=== PATIENT | female | born 1945 | race Caucasian/White ===

== ENCOUNTER → 2016-09-07 | Outpatient (CLI) | payer MEDICARE, BC ==
[~2016-09-07] MED LIST: CALCTAB68 PO; ESTR1MIS PV; FLAXOIL PO; KEFL500C17 PO; METR1GEL4 EX; PERC5TAB12 PO; REST0.05 OU; VITA100066 PO
--- NOTE | 2016-09-07 10:32 | REPMRS ---
Patient History The patient states she had a clinical breast exam in 11/2015. Patient is postmenopausal. No known family history of cancer. Taking unspecified hormones for 7 years. Digital Woman Screen Mammo: September 07, 2016 - Exam #: [id number] Bilateral CC and MLO view(s) were taken. Technologist: Gissel Villalba, Technologist Prior study comparison: July 17, 2015, digital woman screen mammo performed at [facility]. July 08, 2014, digital woman screen mammo performed at [facility]. January 11, 2013, digital woman screen mammo performed at [facility]. FINDINGS: There are scattered fibroglandular densities. There has been no change in the appearance of the mammogram from the prior studies. There is a mild amount of scattered fibroglandular density which is fairly symmetric. There is no interval development of dominant mass, architectural distortion, or clustered microcalcification suggestive of malignancy. ASSESSMENT: BI-RADS/ACR category 1 mammogram. Negative. Recommendation Routine screening mammogram in 1 year (for women over age 40). This mammogram was interpreted with the aid of an FDA-approved computer-aided dectection system. Electronically Signed By: Bolivar John MD 09/07/16 6095
--- NOTE | 2016-09-09 09:56 | DEXA ---
AP SPINE L1 - L4 0.876 -2.6 -0.9 LT FEMUR TOTAL 0.797 -1.7 -0.2 RT FEMUR TOTAL 0.831 -1.4 0.0 TOTAL BODY TOTAL OTHER DUAL FEMUR FRAX* ASSESSMENT Risk factors: Secondary menopause, history of adult fracture. 10 year probability of fracture Major osteoporotic fracture % Hip fracture % COMMENTS: There is low bone density of the hips. There is osteoporosis of the spine. The density of the spine is decreased 3.9% since the initial exam on 10/1998. The spine density is decreased 0.3% since the most recent exam on 06/2014. The density of the left hip has increased 4.2% since the initial exam on 10/1998. The density of the left hip has decreased 0.4% since the most recent exam on 2014. The density of the right hip has increased 6.7% since the initial exam on 1998. The density of the right hip has decreased 1.7% since the most recent exam on 2014. FOLLOW-UP: Recommendation for the next bone density exam: 2 years. TIANNA
== END ==
LOC: M WHC 09:32
PROVIDERS: ATTEND Obstetrics & Gynecology
DX: Z12.31 Encounter for screening mammogram for malignant neoplasm of breast (principal); M85.88 Other specified disorders of bone density and structure, other site
CPT/HCPCS: 77080; G0202

== ENCOUNTER 2016-11-10 13:14 | Outpatient (CLI) | payer MEDICARE, BC, OTHER ==
[~2016-11-10] VITALS: Ht 157.5 cm; Wt 58.5 kg
[2016-11-10] MEDS ORDERED: NS 1,000 ML IV SCH (13:30)
[2016-11-10] MEDS ORDERED: PROPOFOL 200 MG/20 ML VIAL As Ordered ONE (14:00)
[2016-11-10] MEDS ORDERED: LIDOCAINE 2% INJ 100 MG/5 ML SDV (FOR ANES.) As Ordered ONE (14:00)
[2016-11-10] MEDS ORDERED: GLYCOPYRROLATE INJ 0.2 MG/ML 2 ML VIAL As Ordered ONE (14:05)
--- NOTE | 2016-11-10 14:21 | ROOR ---
Patient Name: Elena Sol Procedure Date: 11/10/2016 1:52 PM Date of : 1945 Age: 70 Room: [facility] Gender: Female Note Status: Finalized Procedure: Total Colonoscopy to Cecum + Cold Snare Polypectomy Indications: Screening for colorectal malignant neoplasm, Last colonoscopy: 2004 Providers: Dominick Holly MD Referring MD: Luis Linares MD Requesting Provider: Medicines: Monitored Anesthesia Care Complications: No immediate complications. Procedure: Pre-Anesthesia Assessment: - The heart rate, respiratory rate, oxygen saturations, blood pressure, adequacy of pulmonary ventilation, and response to care were monitored throughout the procedure. The Colonoscope was introduced through the anus and advanced to the cecum, identified by appendiceal orifice and ileocecal valve. The colonoscopy was performed without difficulty. The patient tolerated the procedure well. The quality of the bowel preparation was excellent. Findings: The perianal and digital rectal examinations were normal. Non-bleeding internal hemorrhoids were found during retroflexion. The hemorrhoids were small and Grade I (internal hemorrhoids that do not prolapse). A small polyp was found in the mid ascending colon. The polyp was sessile. The polyp was removed with a cold snare. Resection and retrieval were complete. The exam was otherwise without abnormality on direct and retroflexion views. Impression: - Non-bleeding internal hemorrhoids. - One small polyp in the mid ascending colon, removed with a cold snare. Resected and retrieved. - The examination was otherwise normal on direct and retroflexion views. - The exam was otherwise normal to the cecum. Recommendation: - Patient has a contact number available for emergencies. The signs and symptoms of potential delayed complications were discussed with the patient. Return to normal activities tomorrow. Written discharge instructions were provided to the patient. - High fiber diet. - Discharge patient to home. - Continue present medications. - Await pathology results. - Telephone GI clinic for pathology results in 1 week. - Repeat colonoscopy for surveillance based on pathology results. - Return to referring physician. - The findings and recommendations were discussed with the patient's family. Dominick Holly MD Dominick Holly MD 11/10/2016 2:21:04 PM This report has been signed electronically. Number of Addenda: 0 Note Initiated On: 11/10/2016 1:52 PM Estimated Blood Loss: Estimated blood loss: none.
[2016-11-10 14:59] VITALS: BP 120/64
== END 2016-11-10 15:04 | disposition home or self-care (01) ==
LOC: M OPP 13:14
PROVIDERS: ATTEND Internal Medicine Gastroenterology
DX: Z12.11 Encounter for screening for malignant neoplasm of colon (principal); D12.2 Benign neoplasm of ascending colon; K64.0 First degree hemorrhoids; R01.1 Cardiac murmur, unspecified; L71.9 Rosacea, unspecified; R51 Headache; Z79.899 Other long term (current) drug therapy

== ENCOUNTER → 2016-12-09 | Outpatient (REF) | payer MEDICARE, OTHER ==
[2016-12-09 11:55] LABS: BASO % 0.5 % (0.0-1.0); EOS # 0.1 10^3/uL (0.0-0.50); EOS % 1.6 % (0.0-3.0); IMMATURE GRANULOCYTE % 0.3 % (0-0); LYMPH # 1.1 10^3/uL (1.5-4.5); LYMPH % 30.5 % (24.0-44.0); MEAN CORPUSCULAR HEMOGLOBIN 28.4 pg (27.0-33.0); MEAN CORPUSCULAR HGB CONC 32.2 g/dl (32.0-36.5); MEAN CORPUSCULAR VOLUME 88.4 fl (80.0-96.0); MONO # 0.4 10^3/uL (0.0-0.8); MONO % 9.6 % (0.0-5.0); NEUTROPHILS # 2.2 10^3/uL (1.8-7.7); NEUTROPHILS % 57.5 % (36.0-66.0); PLATELET COUNT, AUTOMATED 234 10^3/uL (150-450); RED CELL DISTRIBUTION WIDTH 13.4 % (11.5-14.5); WHITE BLOOD COUNT 3.7 10^3/uL (4.0-10.0)
[2016-12-09 12:08] LABS: ALBUMIN/GLOBULIN RATIO 1.18 (1.00-1.93); ALKALINE PHOSPHATASE 66 U/L (45-117); ALT/SGPT 38 U/L (12-78); ANION GAP 4 MEQ/L (8-16); AST/SGOT 19 U/L (15-37); BILIRUBIN,TOTAL 0.7 MG/DL (0.2-1.0); BLOOD UREA NITROGEN 15 MG/DL (7-18); CALCIUM LEVEL 9.2 MG/DL (8.8-10.2); CARBON DIOXIDE LEVEL 33 MEQ/L (21-32); CHLORIDE LEVEL 104 MEQ/L (98-107); CHOLESTEROL LEVEL 244 MG/DL (<200); GLOMERULAR FILTRATION RATE > 60.0 (>39); GLUCOSE, FASTING 82 MG/DL (83-110); POTASSIUM SERUM 4.3 MEQ/L (3.5-5.1); SODIUM LEVEL 141 MEQ/L (136-145); TOTAL PROTEIN 7.4 GM/DL (6.4-8.2); TRIGLYCERIDES LEVEL 135 MG/DL (<150)
== END ==
LOC: M LABDRAW1 10:01
PROVIDERS: ATTEND Family Medicine
DX: E55.9 Vitamin D deficiency, unspecified (principal); E78.5 Hyperlipidemia, unspecified

== ENCOUNTER → 2017-10-26 | Outpatient (CLI) | payer MEDICARE, BC | LOC: M WHC 09:03 | DX: Z12.31 Encounter for screening mammogram for malignant neoplasm of breast (principal) | CPT/HCPCS: 77067 ==

== ENCOUNTER → 2017-11-30 | Outpatient (REF) | payer MEDICARE ==
[2017-11-30 12:37] LABS: BASO % 0.6 % (0.0-1.0); EOS # 0.1 10^3/uL (0.0-0.50); EOS % 1.4 % (0.0-3.0); HEMATOCRIT 39.7 % (36.0-47.0); HEMOGLOBIN 12.8 g/dl (12.0-15.5); LYMPH # 1.1 10^3/uL (1.5-4.5); LYMPH % 30.1 % (24.0-44.0); MEAN CORPUSCULAR HEMOGLOBIN 28.3 pg (27.0-33.0); MEAN CORPUSCULAR HGB CONC 32.2 g/dl (32.0-36.5); MEAN CORPUSCULAR VOLUME 87.8 fl (80.0-96.0); MONO # 0.4 10^3/uL (0.0-0.8); NEUTROPHILS % 57.9 % (36.0-66.0); PLATELET COUNT, AUTOMATED 236 10^3/uL (150-450); RED BLOOD COUNT 4.52 10^6/uL (4.00-5.40); RED CELL DISTRIBUTION WIDTH 13.6 % (11.5-14.5); WHITE BLOOD COUNT 3.5 10^3/uL (4.0-10.0)
[2017-11-30 12:53] LABS: ALBUMIN 3.9 GM/DL (3.2-5.2); ALBUMIN/GLOBULIN RATIO 1.15 (1.00-1.93); ALKALINE PHOSPHATASE 69 U/L (45-117); ALT/SGPT 26 U/L (12-78); ANION GAP 4 MEQ/L (8-16); AST/SGOT 20 U/L (7-37); BILIRUBIN,TOTAL 0.6 MG/DL (0.2-1.0); BLOOD UREA NITROGEN 16 MG/DL (7-18); CALCIUM LEVEL 8.9 MG/DL (8.8-10.2); CARBON DIOXIDE LEVEL 30 MEQ/L (21-32); CHLORIDE LEVEL 107 MEQ/L (98-107); CHOLESTEROL LEVEL 253 MG/DL (<200); CHOLESTEROL RISK RATIO 4.685 (<5); CREATININE FOR GFR 0.83 MG/DL (0.55-1.30); GLOMERULAR FILTRATION RATE > 60.0 (>39); GLUCOSE, FASTING 77 MG/DL (70-100); HDL CHOLESTEROL 54 MG/DL (>40); LDL CHOLESTEROL 179 MG/DL (<100); NON-HDL-C 199 MG/DL; POTASSIUM SERUM 4.8 MEQ/L (3.5-5.1); SODIUM LEVEL 141 MEQ/L (136-145); TOTAL PROTEIN 7.3 GM/DL (6.4-8.2); TRIGLYCERIDES LEVEL 98 MG/DL (<150)
[2017-11-30 13:07] LABS: TOTAL 25(OH) VITAMIN D 28.6 NG/ML (30.0-100.0)
== END ==
LOC: M LABDRAW1 11:51
DX: Z00.00 Encounter for general adult medical examination without abnormal findings (principal); E55.9 Vitamin D deficiency, unspecified
CPT/HCPCS: 80053

== ENCOUNTER → 2018-11-29 | Outpatient (CLI) | payer MEDICARE, BC ==
--- NOTE | 2018-11-29 10:29 | REPMRS ---
Patient History The patient states she had a clinical breast exam in 10/2018. Patient is postmenopausal. No known family history of cancer. Taking unspecified hormones for 9 years. 3D TOMOSYNTHESIS WAS PERFORMED. [facility] lifetime risk for breast cancer is 3.3%. Digital Woman Screen Mammo: November 29, 2018 - Exam #: [id number] Bilateral CC and MLO view(s) were taken. Technologist: Gissel Villalba, Technologist Prior study comparison: October 26, 2017, bilateral digital woman screen mammo performed at [facility]. September 07, 2016, digital woman screen mammo performed at [facility]. FINDINGS: The breast tissue is heterogeneously dense. This may lower the sensitivity of mammography. There has been no change in the appearance of the mammogram from the prior studies. There is a moderate amount of residual fibroglandular tissue which is fairly symmetric. There is no interval development of dominant mass, areas of architectural distortion, or clustered microcalcification typical of malignancy. Assessment: BI-RADS/ACR category 1 mammogram. Negative Mammogram. Recommendation Routine screening mammogram in 1 year (for women over age 40). This mammogram was interpreted with the aid of an FDA-approved computer-aided dectection system. Electronically Signed By: Joon Marin MD 11/29/18 0954
--- NOTE | 2018-11-30 10:18 | DEXA ---
AP SPINE L1 - L4 0.806 -3.1 -1.4 LT FEMUR TOTAL 0.776 -1.8 -0.3 LT NECK 0.731 -2.2 -0.4 RT FEMUR TOTAL 0.806 -1.6 0.0 RT NECK 0.755 -2.0 -0.3 TOTAL BODY TOTAL OTHER COMMENTS: There is low bone density of the hips. There is osteoporosis of the spine. The decreased density of the spine does represent a significant change. The decreased density of the left hip does represent significant change. The decreased density of the right hip does represent a significant change. The density of the spine has decreased 11.6% since the initial exam on 11/18/1998. The spine density has decreased 8.0% since the most recent exam on 09/07/2016. The density of the left hip has increased 1.4% since the initial exam on 11/18/1998. The density of the left hip has decreased 2.6% since the most recent exam on 09/07/2016. The density of the right hip has increased 3.5% since the initial exam on 11/18/1998. The density of the right hip has decreased 3.0% since the most recent exam on 09/07/2016. FOLLOW-UP: Recommendation for the next bone density exam: 2 years. TIANNA
== END ==
LOC: M WHC 08:57
DX: Z12.31 Encounter for screening mammogram for malignant neoplasm of breast (principal); R29.890 Loss of height; Z78.0 Asymptomatic menopausal state; Z92.89 Personal history of other medical treatment

== ENCOUNTER → 2018-12-01 | Outpatient (REF) | payer MEDICARE, OTHER ==
[2018-12-01 15:36] LABS: BASO % 0.8 % (0.0-1.0); EOS # 0.1 10^3/uL (0.0-0.5); EOS % 2.2 % (0.0-3.0); HEMATOCRIT 42.2 % (36.0-47.0); HEMOGLOBIN 13.3 g/dl (12.0-15.5); LYMPH # 1.1 10^3/uL (1.5-5.0); LYMPH % 29.4 % (24.0-44.0); MEAN CORPUSCULAR HEMOGLOBIN 28.1 pg (27.0-33.0); MEAN CORPUSCULAR HGB CONC 31.5 g/dl (32.0-36.5); MEAN CORPUSCULAR VOLUME 89.2 fl (80.0-96.0); MONO # 0.3 10^3/uL (0.0-0.8); MONO % 9.1 % (0.0-5.0); NEUTROPHILS # 2.1 10^3/uL (1.5-8.5); NEUTROPHILS % 58.2 % (36.0-66.0); PLATELET COUNT, AUTOMATED 238 10^3/uL (150-450); RED BLOOD COUNT 4.73 10^6/uL (4.00-5.40); WHITE BLOOD COUNT 3.6 10^3/uL (4.0-10.0)
[2018-12-01 15:48] LABS: ALBUMIN 4.2 GM/DL (3.2-5.2); ALT/SGPT 36 U/L (12-78); BILIRUBIN,TOTAL 0.7 MG/DL (0.2-1.0); BLOOD UREA NITROGEN 14 MG/DL (7-18); CALCIUM LEVEL 9.3 MG/DL (8.8-10.2); CARBON DIOXIDE LEVEL 30 MEQ/L (21-32); CHLORIDE LEVEL 106 MEQ/L (98-107); CHOLESTEROL LEVEL 181 MG/DL (<200); CHOLESTEROL RISK RATIO 3.067 (<5); CREATININE FOR GFR 0.86 MG/DL (0.55-1.30); GLOMERULAR FILTRATION RATE > 60.0 (>39); GLUCOSE, FASTING 79 MG/DL (70-100); HDL CHOLESTEROL 59 MG/DL (>40); LDL CHOLESTEROL 101 MG/DL (<100); NON-HDL-C 122 MG/DL; POTASSIUM SERUM 4.3 MEQ/L (3.5-5.1); SODIUM LEVEL 141 MEQ/L (136-145); TOTAL PROTEIN 7.2 GM/DL (6.4-8.2); TRIGLYCERIDES LEVEL 103 MG/DL (<150)
[2018-12-01 15:49] LABS: TOTAL 25(OH) VITAMIN D 23.6 NG/ML (30.0-100.0)
== END ==
LOC: M LABDRAW1 11:20
PROVIDERS: ATTEND Family Medicine
DX: E55.9 Vitamin D deficiency, unspecified (principal); E78.5 Hyperlipidemia, unspecified; Z79.899 Other long term (current) drug therapy

== ENCOUNTER → 2019-12-04 | Outpatient (CLI) | payer MEDICARE, OTHER ==
[2019-12-04 14:11] LABS: HEMATOCRIT 43.2 % (36.0-47.0); HEMOGLOBIN 13.2 g/dl (12.0-15.5); MEAN CORPUSCULAR HEMOGLOBIN 27.6 pg (27.0-33.0); MEAN CORPUSCULAR HGB CONC 30.6 g/dl (32.0-36.5); MEAN CORPUSCULAR VOLUME 90.4 fl (80.0-96.0); PLATELET COUNT, AUTOMATED 240 10^3/uL (150-450); RED BLOOD COUNT 4.78 10^6/uL (4.00-5.40); WHITE BLOOD COUNT 3.9 10^3/uL (4.0-10.0)
[2019-12-04 14:34] LABS: ALBUMIN 4.3 GM/DL (3.2-5.2); ALT/SGPT 27 U/L (12-78); BILIRUBIN,TOTAL 0.8 MG/DL (0.2-1.0); BLOOD UREA NITROGEN 15 MG/DL (7-18); CARBON DIOXIDE LEVEL 31 MEQ/L (21-32); CHLORIDE LEVEL 106 MEQ/L (98-107); CHOLESTEROL LEVEL 166 MG/DL (<200); CHOLESTEROL RISK RATIO 2.634 (<5); CREATININE FOR GFR 0.93 MG/DL (0.55-1.30); GLOMERULAR FILTRATION RATE > 60.0 (>39); GLUCOSE, FASTING 79 MG/DL (70-100); HDL CHOLESTEROL 63 MG/DL (>40); LDL CHOLESTEROL 84 MG/DL (<100); NON-HDL-C 103 MG/DL; POTASSIUM SERUM 4.7 MEQ/L (3.5-5.1); SODIUM LEVEL 142 MEQ/L (136-145); TOTAL 25(OH) VITAMIN D 38.4 NG/ML (30.0-100.0); TOTAL PROTEIN 7.8 GM/DL (6.4-8.2); TRIGLYCERIDES LEVEL 96 MG/DL (<150)
== END ==
LOC: M PLALAB 09:12
PROVIDERS: ATTEND Family Medicine
DX: Z00.00 Encounter for general adult medical examination without abnormal findings (principal); E55.9 Vitamin D deficiency, unspecified; Z79.899 Other long term (current) drug therapy

== ENCOUNTER → 2019-12-07 | Outpatient (CLI) | payer MEDICARE, BC ==
--- NOTE | 2019-12-07 09:54 | REPMRS ---
Patient History The patient states she had a clinical breast exam in 2019. No known family history of cancer. Taking unspecified hormones for 9 years. Digital Woman Screen Mammo: December 07, 2019 - Exam #: [id number] Bilateral CC and MLO view(s) were taken. Technologist: Amie Narayanan, Technologist Prior study comparison: November 29, 2018, bilateral digital woman screen mammo performed at [facility]. October 26, 2017, bilateral digital woman screen mammo performed at [facility]. September 07, 2016, digital woman screen mammo performed at [facility]. FINDINGS: There are scattered fibroglandular densities. The Volpara volumetric breast density category is:B. There has been no change in the appearance of the mammogram from the prior studies. There is a mild amount of scattered fibroglandular density which is fairly symmetric. There is no interval development of dominant mass, architectural distortion, or grouped microcalcification suggestive of malignancy. 3-D tomosynthesis shows no additional findings. Assessment: BI-RADS/ACR category 1 mammogram. Negative Mammogram. Recommendation Routine screening mammogram of both breasts in 1 year (for women over age 40). This patient's Lifetime Breast Cancer Risk is estimated at 2.9 %. This mammogram was interpreted with the aid of an FDA-approved computer-aided dectection system. Electronically Signed By: Bolivar John MD 12/07/19 0954
== END ==
LOC: M WHC 08:34
DX: Z12.31 Encounter for screening mammogram for malignant neoplasm of breast (principal)

== ENCOUNTER → 2020-12-04 | Outpatient (CLI) | payer MEDICARE, BC ==
[2020-12-04 13:19] LABS: EOS # 0.1 10^3/uL (0.0-0.5); EOS % 2.6 % (0.0-3.0); HEMATOCRIT 42.3 % (36.0-47.0); HEMOGLOBIN 13.4 g/dl (12.0-15.5); LYMPH # 1.3 10^3/uL (1.5-5.0); LYMPH % 33.2 % (24.0-44.0); MEAN CORPUSCULAR HEMOGLOBIN 28.2 pg (27.0-33.0); MEAN CORPUSCULAR HGB CONC 31.7 g/dl (32.0-36.5); MEAN CORPUSCULAR VOLUME 88.9 fl (80.0-96.0); MONO # 0.4 10^3/uL (0.0-0.8); NEUTROPHILS # 2.1 10^3/uL (1.5-8.5); NEUTROPHILS % 53.7 % (36.0-66.0); PLATELET COUNT, AUTOMATED 227 10^3/uL (150-450); RED BLOOD COUNT 4.76 10^6/uL (4.00-5.40); WHITE BLOOD COUNT 3.9 10^3/uL (4.0-10.0)
[2020-12-04 13:24] LABS: ALT/SGPT 36 U/L (12-78); BILIRUBIN,TOTAL 0.6 MG/DL (0.2-1.0); BLOOD UREA NITROGEN 12 MG/DL (7-18); CALCIUM LEVEL 9.7 MG/DL (8.8-10.2); CARBON DIOXIDE LEVEL 30 MEQ/L (21-32); CHLORIDE LEVEL 108 MEQ/L (98-107); CHOLESTEROL LEVEL 188 MG/DL (<200); CHOLESTEROL RISK RATIO 3.133 (<5); CREATININE FOR GFR 0.86 MG/DL (0.55-1.30); GLOMERULAR FILTRATION RATE > 60.0 (>39); GLUCOSE, FASTING 87 MG/DL (70-100); HDL CHOLESTEROL 60 MG/DL (>40); LDL CHOLESTEROL 103 MG/DL (<100); NON-HDL-C 128 MG/DL; POTASSIUM SERUM 4.7 MEQ/L (3.5-5.1); SODIUM LEVEL 142 MEQ/L (136-145); TOTAL PROTEIN 7.5 GM/DL (6.4-8.2); TRIGLYCERIDES LEVEL 123 MG/DL (<150)
[2020-12-04 13:32] LABS: TOTAL 25(OH) VITAMIN D 32.7 NG/ML (30.0-100.0)
== END ==
LOC: M PLALAB 11:28
PROVIDERS: ATTEND Family Medicine
DX: E55.9 Vitamin D deficiency, unspecified (principal); E78.00 Pure hypercholesterolemia, unspecified

== ENCOUNTER → 2020-12-15 | Outpatient (CLI) | payer MEDICARE, BC ==
--- NOTE | 2020-12-15 16:28 | REPMRS ---
Patient History The patient states she has not had a clinical breast exam in over a year. No known family history of cancer. Taking unspecified hormones for 9 years. Moderna vaccine 04/15/20 left arm. 05/15/20 right arm. Patient states no breast complaints today. Patient has signed MRS History Sheet. Digital Woman Screen Mammo: December 15, 2020 - Exam #: [id number] Bilateral CC and MLO view(s) were taken. Technologist: RT Misael Prior study comparison: December 07, 2019, bilateral digital woman screen mammo performed at [facility]. November 29, 2018, bilateral digital woman screen mammo performed at [facility]. FINDINGS: There are scattered fibroglandular densities. Screening. Digital screening (2D) mammography was performed bilaterally in the CC and MLO projections. Additionally, breast tomosynthesis (3D mammography) was performed bilaterally in the CC and MLO projections. Todays exam was compared to the prior exam/exams. By history, the patient has no complaints of a palpable breast abnormality or other significant breast complaints. The Volpara volumetric breast density category is B, there are scattered areas of fibroglandular densities. The breasts are unchanged in size and shape. There are no monique-soft tissue densities or spiculated masses. There is no internal architectural distortion. There are no suspicious monique-calcific clusters. Skin thickening or nipple retraction is not present. IMPRESSION: BI-RADS Category 2- Benign Findings. There is no evidence of malignant alteration of the breasts. Followup examination recommended in one year. The lifetime Tyrer-Cuzick score is 2.7% This mammogram was read with the assistance of [employer],an FDA approved computer aided detection system for mammography. Negative x-ray reports should not delay surgical consultation if a dominant or clinically suspicious mass is present. Not all breast cancers can be identified by mammography. Therefore, we recommend that you continue to perform regular breast self-examination and physical examination and then promptly contact your physician of any concerns or changes. Adenosis and dense breasts may obscure an underlying neoplasm. No significant changes when compared with prior studies. Assessment: BI-RADS/ACR category 2 mammogram. Benign Findings. Recommendation Routine screening mammogram of both breasts in 1 year. Electronically Signed By: Arnie Jimenez MD 12/15/20 [id number]
--- NOTE | 2020-12-15 18:40 | DEXAMM ---
INDICATION: ASYMPTOMATIC MENOPAUSE. COMPARISON: 11/29/2018 as well as other prior exams. TECHNIQUE: Bone density was measured using dual-energy x-ray absorptiometry (DEXA). FINDINGS: AP SPINE L1-L4 BMD 0.849 g/cm2 Young Adult T-Score -2.8 Age Matched Z-Score -1.1. LT FEMUR, TOTAL BMD 0.785 g/cm2 Young Adult T-Score -1.8 Age Matched Z-Score -0.1. LT NECK BMD 0.781 g/cm2 Young Adult T-Score -1.8 Age Matched Z-Score 0.0. RT FEMUR, TOTAL BMD 0.827 g/cm2 Young Adult T-Score -1.4 Age Matched Z-Score 0.2. RT NECK BMD 0.789 g/cm2 Young Adult T-Score -1.8 Age Matched Z-Score 0.1. IMPRESSION: There is osteoporosis of the spine. There is low bone density of the left hip. There is low bone density of the right hip. The density of the spine has decreased 6.9% since the initial exam on 11/18/1998. The density of the spine increased 5.3% since most recent exam on 11/29/2018. The density of the left hip has increased 2.6% since initial exam on 11/18/1998. The density of the left hip has increased 1.2% since most recent exam on 11/29/2018. The density of the right hip has increased 6.2% since the initial exam on 11/18/1998. The density of the right hip has increased 2.6% since the most recent exam on 11/29/2018. FOLLOW-UP: Recommendation for the next bone density exam: 2 years. <Electronically signed by Joon Marin > 12/15/20 [id number]
== END ==
LOC: M WHC 15:04
PROVIDERS: ATTEND Obstetrics & Gynecology
DX: Z12.31 Encounter for screening mammogram for malignant neoplasm of breast (principal); Z78.0 Asymptomatic menopausal state; M85.89 Other specified disorders of bone density and structure, multiple sites

== ENCOUNTER → 2021-12-04 | Outpatient (CLI) | payer MEDICARE, BC ==
[2021-12-04 13:14] LABS: BASO % 0.5 % (0.0-1.0); EOS # 0.1 10^3/uL (0.0-0.5); EOS % 1.1 % (0.0-3.0); HEMATOCRIT 43.3 % (36.0-47.0); HEMOGLOBIN 13.2 g/dl (12.0-15.5); LYMPH # 0.8 10^3/uL (1.5-5.0); MEAN CORPUSCULAR HEMOGLOBIN 27.6 pg (27.0-33.0); MEAN CORPUSCULAR HGB CONC 30.5 g/dl (32.0-36.5); MEAN CORPUSCULAR VOLUME 90.6 fl (80.0-96.0); MONO # 0.4 10^3/uL (0.0-0.8); MONO % 7.9 % (2.0-8.0); NEUTROPHILS # 4.1 10^3/uL (1.5-8.5); NEUTROPHILS % 75.1 % (36.0-66.0); PLATELET COUNT, AUTOMATED 201 10^3/uL (150-450); RED BLOOD COUNT 4.78 10^6/uL (4.00-5.40); WHITE BLOOD COUNT 5.5 10^3/uL (4.0-10.0)
[2021-12-04 14:48] LABS: ALBUMIN 4.2 GM/DL (3.2-5.2); ALT/SGPT 33 U/L (12-78); BILIRUBIN,TOTAL 0.8 MG/DL (0.2-1.0); BLOOD UREA NITROGEN 16 MG/DL (7-18); CALCIUM LEVEL 9.5 MG/DL (8.8-10.2); CARBON DIOXIDE LEVEL 30 MEQ/L (21-32); CHLORIDE LEVEL 104 MEQ/L (98-107); CHOLESTEROL LEVEL 185 MG/DL (<200); CHOLESTEROL RISK RATIO 3.032 (<5); CREATININE FOR GFR 0.89 MG/DL (0.55-1.30); GLOMERULAR FILTRATION RATE > 60.0 (>39); GLUCOSE, FASTING 94 MG/DL (70-100); HDL CHOLESTEROL 61 MG/DL (>40); LDL CHOLESTEROL 95 MG/DL (<100); NON-HDL-C 124 MG/DL; POTASSIUM SERUM 4.5 MEQ/L (3.5-5.1); SODIUM LEVEL 138 MEQ/L (136-145); TOTAL PROTEIN 7.5 GM/DL (6.4-8.2); TRIGLYCERIDES LEVEL 143 MG/DL (<150)
== END ==
LOC: M PLALAB 10:17
PROVIDERS: ATTEND Family Medicine
DX: E55.9 Vitamin D deficiency, unspecified (principal); E78.00 Pure hypercholesterolemia, unspecified

== ENCOUNTER → 2021-12-15 | Outpatient (CLI) | payer MEDICARE, BC | LOC: M WHC 07:26 | PROVIDERS: ATTEND Obstetrics & Gynecology | DX: Z12.31 Encounter for screening mammogram for malignant neoplasm of breast (principal); R92.2 Inconclusive mammogram ==

== ENCOUNTER → 2021-12-30 | Outpatient (CLI) | payer MEDICARE, BC, OTHER | LOC: M WHC 14:06 | PROVIDERS: ATTEND Obstetrics & Gynecology | DX: Z12.31 Encounter for screening mammogram for malignant neoplasm of breast (principal) | CPT/HCPCS: 76642; 77065; G0279 ==

== ENCOUNTER → 2022-11-25 | Outpatient (CLI) | payer MEDICARE, BC, OTHER ==
[~2022-11-25] MED LIST changes: +ATOR1TAB19 PO; -ESTR1MIS PV; +ESTR1VAG3 PV; +PROL60SO SC
[2022-11-25 16:16] LABS: ALBUMIN 3.9 G/DL (3.2-5.2); ALKALINE PHOSPHATASE 58 U/L (46-116); ALT/SGPT 33 U/L (7.0-40); AST/SGOT 28 U/L (<34); BILIRUBIN,TOTAL 0.9 MG/DL (0.3-1.2); BLOOD UREA NITROGEN 16 MG/DL (9-23); CALCIUM LEVEL 9.4 MG/DL (8.3-10.6); CARBON DIOXIDE LEVEL 30 MMOL/L (20-31); CHLORIDE LEVEL 106 MMOL/L (98-107); CHOLESTEROL LEVEL 172 MG/DL (<200); CHOLESTEROL RISK RATIO 2.95 (<5); CREATININE FOR GFR 0.92 MG/DL (0.55-1.30); GLOMERULAR FILTRATION RATE > 60.0 (>39); GLUCOSE, FASTING 76 MG/DL (74-106); HDL CHOLESTEROL 58.3 MG/DL (>40); LDL CHOLESTEROL 98.5 MG/DL (<100); NON-HDL-C 113.7 MG/DL; POTASSIUM SERUM 4.6 MMOL/L (3.5-5.1); SODIUM LEVEL 140 MMOL/L (136-145); TOTAL PROTEIN 7.1 G/DL (5.7-8.2); TRIGLYCERIDES LEVEL 76 MG/DL (<150)
[2022-11-25 16:18] LABS: TOTAL 25(OH) VITAMIN D 34.7 NG/ML (20.0-100.0)
== END ==
LOC: M PLALAB 10:57
PROVIDERS: ATTEND Family Medicine
DX: Z00.00 Encounter for general adult medical examination without abnormal findings (principal); E55.9 Vitamin D deficiency, unspecified; E78.00 Pure hypercholesterolemia, unspecified

== ENCOUNTER 2022-12-08 07:10 | Day surgery (SDC) | payer MEDICARE, BC, OTHER ==
[~2022-12-08] VITALS: Ht 157.5 cm; Wt 58.1 kg
[~2022-12-08 07:10] MED LIST changes: +NS 1,000 ML IV ONE
[2022-12-08] MEDS ORDERED: PROL60SO SC (07:45)
[2022-12-08] MEDS ORDERED: CALC600T57 PO (07:45)
[2022-12-08] MEDS ORDERED: VITA200048 PO (07:45)
[2022-12-08] MEDS ORDERED: MAGN200T PO (07:45)
[2022-12-08] MEDS ORDERED: LIDOCAINE 2% 100MG/5ML SDV (FOR ANES.) As Ordered ONE (08:01)
[2022-12-08] MEDS ORDERED: propofoL 200 MG/20 ML VIAL As Ordered ONE ×2 (08:01→09:02)
[2022-12-08 08:45] VITALS: TEMP 97.8
[2022-12-08 09:03] VITALS: BP 109/56; O2SAT 98
== END 2022-12-08 09:03 | disposition home or self-care (01) ==
LOC: M OPP 07:10
PROVIDERS: ATTEND Internal Medicine Gastroenterology
DX: Z12.11 Encounter for screening for malignant neoplasm of colon (principal); Z86.010 Personal history of colon polyps; K64.0 First degree hemorrhoids; K57.30 Diverticulosis of large intestine without perforation or abscess without bleeding; Z79.02 Long term (current) use of antithrombotics/antiplatelets; Z79.620 Long term (current) use of immunosuppressive biologic; Z91.89 Other specified personal risk factors, not elsewhere classified

== ENCOUNTER → 2022-12-20 | Outpatient (CLI) | payer MEDICARE, BC, OTHER ==
[~2022-12-20] MED LIST changes: +CALC600T57 PO; +MAGN200T PO; -NS 1,000 ML IV ONE; +VITA200048 PO
== END ==
LOC: M WHC 10:34
PROVIDERS: ATTEND Obstetrics & Gynecology
DX: Z12.31 Encounter for screening mammogram for malignant neoplasm of breast (principal); Z13.820 Encounter for screening for osteoporosis; N95.9 Unspecified menopausal and perimenopausal disorder

== ENCOUNTER → 2023-12-05 | Outpatient (CLI) | payer MEDICARE, BC ==
[2023-12-05 11:19] LABS: BASO % 0.7 % (0.0-1.0); EOS # 0.1 10^3/uL (0.0-0.5); EOS % 2.5 % (0.0-3.0); HEMATOCRIT 41.6 % (36.0-47.0); LYMPH # 1.2 10^3/uL (1.5-5.0); MEAN CORPUSCULAR HEMOGLOBIN 27.7 pg (27.0-33.0); MEAN CORPUSCULAR HGB CONC 31.3 g/dl (32.0-36.5); MEAN CORPUSCULAR VOLUME 88.5 fl (80.0-96.0); MONO # 0.5 10^3/uL (0.0-0.8); MONO % 12.5 % (2.0-8.0); NEUTROPHILS # 2.2 10^3/uL (1.5-8.5); NEUTROPHILS % 55.1 % (36.0-66.0); PLATELET COUNT, AUTOMATED 206 10^3/uL (150-450); WHITE BLOOD COUNT 4.1 10^3/uL (4.0-10.0)
[2023-12-05 11:41] LABS: TOTAL 25(OH) VITAMIN D 31.6 NG/ML (20.0-100.0)
[2023-12-05 11:42] LABS: ALKALINE PHOSPHATASE 53 U/L (46-116); ALT/SGPT 38 U/L (7.0-40); AST/SGOT 20 U/L (<34); BILIRUBIN,TOTAL 0.8 MG/DL (0.3-1.2); BLOOD UREA NITROGEN 17 MG/DL (9-23); CALCIUM LEVEL 10.5 MG/DL (8.3-10.6); CARBON DIOXIDE LEVEL 30 MMOL/L (20-31); CHLORIDE LEVEL 106 MMOL/L (98-107); CHOLESTEROL LEVEL 178 MG/DL (<200); CHOLESTEROL RISK RATIO 3.62 (<5); GLOMERULAR FILTRATION RATE > 60.0 (>39); GLUCOSE, FASTING 83 MG/DL (74-106); HDL CHOLESTEROL 49.1 MG/DL (>40); LDL CHOLESTEROL 108.5 MG/DL (<100); NON-HDL-C 128.9 MG/DL; POTASSIUM SERUM 4.7 MMOL/L (3.5-5.1); SODIUM LEVEL 141 MMOL/L (136-145); TOTAL PROTEIN 7.1 G/DL (5.7-8.2); TRIGLYCERIDES LEVEL 102 MG/DL (<150)
== END ==
LOC: M PLALAB 08:21
PROVIDERS: ATTEND Family Medicine
DX: E55.9 Vitamin D deficiency, unspecified (principal); E78.00 Pure hypercholesterolemia, unspecified

== ENCOUNTER → 2023-12-26 | Outpatient (CLI) | payer MEDICARE, BC | LOC: M WHC 08:39 | PROVIDERS: ATTEND Nurse Practitioner Family | DX: Z12.31 Encounter for screening mammogram for malignant neoplasm of breast (principal) ==

== ENCOUNTER 2024-11-21 09:21 | Day surgery (SDC) | payer MEDICARE, BC ==
[~2024-11-21] VITALS: Ht 157.5 cm; Wt 59.7 kg
[~2024-11-21 09:21] MED LIST changes: +ASCO1TAB5 PO; +BSS IRRIG/VANCO(10MG)/TOBRA(5MG)/EPINEPH(1:1000-0.5CC)500ML BAG-ORONLY As Ordered ONE; +DENO60SY2 SC; -PROL60SO SC
[2024-11-21] MEDS ORDERED: MIDAZOLAM INJ 2 MG/2 ML VIAL As Ordered ONE (10:02)
[2024-11-21] MEDS ORDERED: D3 S1CAP3 PO (10:54)
[2024-11-21] MEDS: TROPICAMIDE 1% OPHTH SOLN 15ML OD SCH (11:43)
[2024-11-21] MEDS: OFLOXACIN 0.3 % (OCUFLOX) OPTH SOL 5ML OD ONE (11:43)
[2024-11-21] MEDS: PHENYLEPHRINE 2.5% OPHTH SOL 2ML OD SCH (11:43)
[2024-11-21] MEDS: LIDOCAINE 3.5% 1 ML OPHTH TOPICAL GEL OU ONE (11:43)
[2024-11-21] MEDS: PHENYLEPHRINE 10% OPHTH SOL 5ML OD PRN (11:44)
[2024-11-21] MEDS: CEFUROXIME 1 MG/0.1 ML INTRACAMERAL INJ As Ordered ONE (12:30)
[2024-11-21] MEDS: LIDOCAINE 1% SDV 5 ML VIAL As Ordered ONE (12:30)
[2024-11-21 12:35] VITALS: BP 103/57; TEMP 97; O2SAT 98
== END 2024-11-21 13:03 | disposition home or self-care (01) ==
LOC: M SDC 09:21
PROVIDERS: ATTEND Ophthalmology
DX: H25.11 Age-related nuclear cataract, right eye (principal); E78.00 Pure hypercholesterolemia, unspecified; Z79.899 Other long term (current) drug therapy; Z88.8 Allergy status to other drugs, medicaments and biological substances; Z98.42 Cataract extraction status, left eye; M81.0 Age-related osteoporosis without current pathological fracture
CPT/HCPCS: 66984; J0697; J2250; J3010; V2788

== ENCOUNTER → 2024-11-30 | Outpatient (CLI) | payer MEDICARE, BC ==
[~2024-11-30] MED LIST changes: -BSS IRRIG/VANCO(10MG)/TOBRA(5MG)/EPINEPH(1:1000-0.5CC)500ML BAG-ORONLY As Ordered ONE; +D3 S1CAP3 PO
[2024-11-30 15:40] LABS: BASO # 0.0 10^3/uL (0.0-0.2); BASO % 0.6 % (0.0-1.0); EOS # 0.1 10^3/uL (0.0-0.5); EOS % 1.6 % (0.0-3.0); LYMPH # 1.6 10^3/uL (1.5-5.0); LYMPH % 30.3 % (24.0-44.0); MONO # 0.5 10^3/uL (0.0-0.8); MONO % 10.2 % (2.0-8.0); NEUTROPHILS # 2.9 10^3/uL (1.5-8.5); NEUTROPHILS % 56.9 % (36.0-66.0); PLATELET COUNT, AUTOMATED 256 10^3/uL (150-450)
[2024-11-30 15:44] LABS: ALT/SGPT 28.0 U/L (7.0-40); AST/SGOT 25.0 U/L (<34); CALCIUM LEVEL 10.1 MG/DL (8.3-10.6); CARBON DIOXIDE LEVEL 30.0 MMOL/L (20-31); CHLORIDE LEVEL 101.0 MMOL/L (98-107); CHOLESTEROL LEVEL 192.0 MG/DL (<200); CHOLESTEROL RISK RATIO 3.22 (<5); CREATININE FOR GFR 0.88 MG/DL (0.55-1.30); GLOMERULAR FILTRATION RATE 67.6 (>39); LDL CHOLESTEROL 110.3 MG/DL (<100); NON-HDL-C 132.5 MG/DL; POTASSIUM SERUM 4.5 MMOL/L (3.5-5.1); SODIUM LEVEL 142.0 MMOL/L (136-145); TRIGLYCERIDES LEVEL 111.0 MG/DL (<150)
[2024-11-30 15:47] LABS: TOTAL 25(OH) VITAMIN D 30.6 NG/ML (20.0-100.0)
== END ==
LOC: M PLALAB 11:05
PROVIDERS: ATTEND Family Medicine
DX: E55.9 Vitamin D deficiency, unspecified (principal); E78.5 Hyperlipidemia, unspecified

== ENCOUNTER → 2024-12-28 | Outpatient (CLI) | payer MEDICARE, BC | LOC: M WHC 07:36 | PROVIDERS: ATTEND Nurse Practitioner Family | DX: Z12.31 Encounter for screening mammogram for malignant neoplasm of breast (principal); R92.323 Mammographic fibroglandular density, bilateral breasts ==

== ENCOUNTER → 2025-01-02 | Outpatient (CLI) | payer MEDICARE, BC | LOC: M WHC 08:17 | PROVIDERS: ATTEND Nurse Practitioner Family | DX: M85.80 Other specified disorders of bone density and structure, unspecified site (principal); Z78.0 Asymptomatic menopausal state ==